=== PATIENT | female | born 1930 | race Caucasian/White ===

== ENCOUNTER 2016-06-10 03:47 | Inpatient (IN) | payer OTHER, MEDICARE ==
[~2016-06-10] VITALS: Ht 144.8 cm; Wt 81.2 kg
[~2016-06-10 03:47] MED LIST: ALDACTONE50 M1 PO; AMLODIPINE BESY10 M1 PO; ASPIRIN EC81 M1 PO; EVISTA60 MG PO; FLONASE ALLERG9.9 ML NAS; LEVOCETIRIZINE D5 M1 PO; LEVOTHYROXINE50 MCG PO; METAMUCIL0.52 GM PO; PATADAY2.5 ML OPH; PRAVACHOL20 M2 PO; REFRESH TEARS15 ML OPH; [UNRECOGNIZED DRUG - OTHER] PO
[2016-06-10] MEDS ORDERED: PATADAY2.5 ML OPH (12:59)
--- NOTE | 2016-06-10 13:21 | Admission Core Measures ---
See Addendum Admission Meds I reviewed the following Meds: Current Medications Sig/Nubia Start time Last Medication Dose Stop Time Status Admin Acetaminophen 975 MG ONCE 06/10 0000 NR (Tylenol) 06/10 2359 Amlodipine Besylate 10 MG DAILY 06/11 1000 UNVr (Norvasc) Artificial Tears 2 GTT DAILY 06/11 1000 UNVr (Tears Natural) Fluticasone 2 SPRAY DAILY 06/11 1000 UNVr Propionate (Flonase) Naphazoline HCl/ 1 GTT DAILY 06/11 1000 UNVr Pheniramine Maleate (Visine-A) Non-Formulary 0 SEE ADMIN CRITERIA 06/10 1315 UNVr Medication (NON FORMULARY) Oxycodone HCl 10 MG ONCE 06/10 0000 NR (Roxicodone) 06/10 2359 Pravastatin Sodium 20 MG DAILY 06/11 1000 UNVr (Pravachol) Spironolactone 25 MG DAILY 06/11 1000 UNVr (Aldactone) Acute Coronary Syndrome Inclusion Criteria ACS Diagnosis No Inpatient Core Measures LDL Reminder: If No, please order W/I first 24hr of stay Congestive Heart Failure Inclusion Criteria CHF Diagnosis No Cerebrovascular accident Inclusion Criteria CVA/TIA Diagnosis No Inpatient Core Measures Bedside Swallow Eval Reminder: If BSE failed, place ST order Antithrombotic Reminder: Order Antithrombotic Medication by end of day 2 Antithrombotic Reminder: Document Reason Antithrombotic Not ordered by end of day 2 AFIB/Flutter Reminder: If Present, add to problem list AFIB/Flutter Reminder: Order Anticoag Medication for pts with AFIB/Flutter Atherosclerosis Reminder: If Present, add to problem list LDL Reminder: If No, please order W/I first 24hr of stay PT Order Reminder: If No, please order Venous thromboembolism Inpatient Core Measures VTE Risk Factors: Age > 40, Surgery VTE Prophylaxis Ordered Inpt [facility] prophylaxis d/t No contraindications No VTE Pharm Prophylaxis d/t No contraindications Inclusion Criteria - Per Current guidelines, there needs to be overlap - treatment for the first 5 days of Warfarin therapy. - Parenteral Anticoagulation (IV or SC) needs to be - given along with Warfarin therapy. VTE Diagnosis No VTE Type NONE VTE Confirmed by (Test) NONE Problem List As ranked by this Provider includes Assessment & Plan 1. Unilateral primary osteoarthritis, left knee HOME MEDS Home Med List Amlodipine Besylate 10 MG TABLET 1 TAB PO DAILY BP (Reported) Carboxymethylcellulose Sodium (Refresh Tears) (Unknown Strength) DROPS ( Unknown Dose) OPH AD PRN EYE(S) (Reported) Fluticasone Propionate (Flonase Allergy Relief) (Unknown Strength) SPRAY.SUSP (Unknown Dose) KEYSHAWN AD ALLERGIES (Reported) Levocetirizine Dihydrochloride 5 MG TABLET 1 TAB PO DAILY ALLERGIES (Reported ) Levothyroxine Sodium 50 MCG TABLET 1 TAB PO DAILY THYROID (Reported) [OCUGARD] 1 TAB PO DAILY SUPPLEMENT (Reported) Olopatadine HCl (Pataday) 0.2 % DROPS 1 GTT OPH DAILY ALLERGIES (Reported) Pravastatin Sodium (Pravachol) 20 MG TABLET 1 TAB PO DAILY CHOLESTEROL ( Reported) Psyllium Husk (Metamucil) (Unknown Strength) CAPSULE 2 TSP PO DAILY CONSTIPATION (Reported) Raloxifene Hydrochloride (Evista) 60 MG TABLET 1 TAB PO DAILY OSTEOPOROSIS ( Reported) Spironolactone (Aldactone) 50 MG TABLET 0.5 TAB PO DAILY EDEMA (Reported) Discontinued Medications Aspirin (Ecotrin*) 81 MG TABLET.DR 1 TAB PO DAILY HEART/BLOOD (Reported) Discontinued reason: Changed Dose
[2016-06-10] MEDS ORDERED: MS CONTIN15 M2 PO (13:27)
[2016-06-10] MEDS ORDERED: DILAUDID2 M1 PO (13:27)
[2016-06-10] MEDS ORDERED: MIRALAX17 G1 PO (13:27)
[2016-06-10] MEDS ORDERED: COLACE100 M1 PO (13:27)
[2016-06-10] MEDS ORDERED: ASPIRIN EC325 M2 PO (13:27)
--- NOTE | 2016-06-10 13:31 | Patient Discharge Instructions ---
Discharge Instructions General Discharge Information You were seen/treated for: Right knee pain You had these procedures: Right total knee replacement Watch for these problems: Increasing pain, redness, warmth, swelling. Drainage of any type from incision. Inability to bear weight on left leg. Fever greater than 101.5. Do not soak the wound: Yes No bath, but you may shower: Yes Special Instructions: Incision: Dry dressing. May shower. No baths. No ointments of any kind. Ice as needed. Bowel regimen: Colace and or Miralax Weight-bearing as tolerated Follow-up with Dr. Ponce in 6 weeks. Call office for fevers greater than 101.5, excessive drainage or inability to bear weight on operative extremity. Visiting nurse will change dressing. Blood thinner: You are taking a blood thinner called coumadin, another name for this medication is warfarin. The dose of this medication depends on blood work that you will be having called INR. Your INR will be checked twice weekly and the dose of your coumadin will be made based on your INR. Please await specific instructions from Dr. Ponce's office regarding how much coumadin you are to be taking each day. Diet Continue normal diet: Yes Recommended Diet: Regular Additional DIET Information: Advance diet as tolerated Activity Full Activity/No Limits: No Activity Self Limited: Yes Pounds, do NOT lift more than: 10 Additional ACTIVITY Info: Weight-bear as tolerated on right leg Acute Coronary Syndrome Inclusion Criteria At DC or during hospital stay patient has or had the following: ACS DIAGNOSIS No Discharge Core Measures Meds if any: Prescribed or Continued at Discharge Meds if any: NOT Prescribed or Continued at Discharge Congestive Heart Failure Inclusion Criteria At DC or during hospital stay patient has or had the following: CHF DIAGNOSIS No Discharge Core Measures Meds if any: Prescribed or Continued at Discharge Meds if any: NOT Prescribed or Continued at Discharge Cerebrovascular accident Inclusion Criteria At DC or during hospital stay patient has or had the following: CVA/TIA Diagnosis No Discharge Core Measures Meds if any: Prescribed or Continued at Discharge Meds if any: NOT Prescribed or Continued at Discharge Venous thromboembolism Inclusion Criteria VTE Diagnosis No VTE Type NONE VTE Confirmed by (Test) NONE Discharge Core Measures - Per Current guidelines, there needs to be overlap - treatment for the first 5 days of Warfarin therapy. - If discharged on Warfarin prior to 5 days of - overlap therapy, the patient will need to be - assessed for post discharge needs including - *Post discharge parental anticoagulation - *Warfarin and/or parental anticoagulation education - *Follow up date to check INR post discharge At least 5 days overlap therapy as Inpatient No Meds if any: Prescribed or Continued at Discharge Note: Overlap Therapy is Warfarin and Anticoagulant Meds if any: NOT Prescribed or Continued at Discharge Meds if any: Prescribed or Continued at Discharge Note: Overlap Therapy is Warfarin and Anticoagulant Meds if any: NOT Prescribed or Continued at Discharge
--- NOTE | 2016-06-10 13:33 | Surgical Discharge Summary ---
Visit Information Visit Dates Admission Date: 06/10/16 Discharge Date: 06/13/16 History of Present Illness Chief Complaint: Right knee pain Medical History Isolation History: Standard Surgical History Pertinent Surgical History: non-contributory Review of Systems: See H&P Hospital Course Course Attending Physician: YVONNE BALDERAS MD Primary Care Physician: PATIENT HAS NO PRIMARY CARE DR Hospital Course: Patient was admitted to the hospital on 06/10/2016 for an elective right total knee replacement. She tolerated the procedure well. She was transferred to a general surgical floor. Her diet was advanced and tolerated. She voided spontaneously. Her vital signs were stable and within normal limits. Her pain was well controlled. She was evaluated and treated by physical therapy. She was deemed appropriate for discharge. Allergies: Coded Allergies: Penicillins (Intermediate, 06/04/16) Sulfa (Sulfonamide Antibiotics) (Intermediate, 06/04/16) Tetracyclines (Intermediate, 06/04/16) ciprofloxacin (From CIPRO) (Intermediate, 06/04/16) diphenhydramine (From BENADRYL) (Intermediate, 06/04/16) guaifenesin (From MUCINEX) (Intermediate, 06/04/16) latex (Intermediate, 06/04/16) Disposition Summary Disposition Principal Diagnosis: right knee unilateral primary osteoarthritis Additional Diagnosis: None Discharge Disposition: home health services Discharge Instructions General Discharge Information Code Status: Full Code Patient's Diet: Regular, advance as tolerated Patient's Activity: Weight-bear as tolerated on right leg Follow-Up Instructions/Appts: Incision: Dry dressing. May shower. No baths. No ointments of any kind. Ice as needed. Bowel regimen: Colace and or MiraLAX Weight-bearing as tolerated Follow-up with Dr. Balderas in 6 weeks. Call office for fevers greater than 101.5, excessive drainage or inability to bear weight on operative extremity. Visiting nurse will change dressing. Medications at Discharge Discharge Medications: Stop taking the following medications: Aspirin (Ecotrin*) 81 MG TABLET. ORAL DAILY Continue taking these medications: Amlodipine Besylate (Amlodipine Besylate) 10 MG TABLET 1 Tablet ORAL DAILY Comments: DOCUMENTED PER CMR DURING PRE-SX INTERVIEW Pravastatin Sodium (Pravachol) 20 MG TABLET 1 Tablet ORAL DAILY Comments: DOCUMENTED PER CMR DURING PRE-SX INTERVIEW Levocetirizine Dihydrochloride (Levocetirizine Dihydrochloride) 5 MG TABLET 1 Tablet ORAL DAILY Comments: DOCUMENTED PER CMR DURING PRE-SX INTERVIEW Spironolactone (Aldactone) 50 MG TABLET 0.5 Tablet ORAL DAILY Comments: MAY REPEAT IN PM; DOCUMENTED PER CMR DURING PRE-SX INTERVIEW Levothyroxine Sodium (Levothyroxine Sodium) 50 MCG TABLET 1 Tablet ORAL DAILY Comments: DOCUMENTED PER CMR DURING PRE-SX INTERVIEW Fluticasone Propionate (Flonase Allergy Relief) (Unknown Strength) SPRAY.SUSP Unknown Dose In the nose As Directed Comments: DOCUMENTED PER CMR DURING PRE-SX INTERVIEW Psyllium Husk (Metamucil) (Unknown Strength) CAPSULE 2 Teaspoonful ORAL DAILY Comments: DOCUMENTED PER CMR DURING PRE-SX INTERVIEW Raloxifene Hydrochloride (Evista) 60 MG TABLET 1 Tablet ORAL DAILY Comments: DOCUMENTED PER CMR DURING PRE-SX INTERVIEW [OCUGARD] 1 Tablet ORAL DAILY Comments: DOCUMENTED PER CMR DURING PRE-SX INTERVIEW Carboxymethylcellulose Sodium (Refresh Tears) (Unknown Strength) DROPS Unknown Dose In the eye As Directed as needed for EYE(S) Comments: DOCUMENTED PER CMR DURING PRE-SX INTERVIEW Olopatadine HCl (Pataday) 0.2 % DROPS 1 Drop In the eye DAILY Start taking the following new medications: Hydromorphone HCl (Dilaudid) 2 MG TABLET 1-2 Tablet ORAL Q4-6HR as needed for PAIN Qty = 36 No Refills Docusate Sodium (Colace) 100 MG CAPSULE 1 Capsule ORAL TWICE DAILY Qty = 14 No Refills Polyethylene Glycol 3350 (Miralax) 17 GRAM POWD.PACK 1 Packet ORAL DAILY Qty = 7 No Refills Instructions: dissolve in water, DISCONTINUE USE IF YOU DEVELOP LOOSE STOOL OR DIARRHEA Warfarin Sodium (Coumadin) 2.5 MG TABLET 1-3 Tablet ORAL DAILY Qty = 30 No Refills Instructions: THE DOSE OF THIS MEDICATION MAY CHANGE DAILY. PLEASE AWAIT SPECIFIC DAILY INSTRUCTIONS PRIOR TO TAKING. dissolve in water, DISCONTINUE USE IF YOU DEVELOP LOOSE STOOL OR DIARRHEA Warfarin Sodium (Coumadin) 2.5 MG TABLET 1-3 Tablet ORAL DAILY Qty = 30 No Refills Instructions: THE DOSE OF THIS MEDICATION MAY CHANGE DAILY. PLEASE AWAIT SPECIFIC DAILY INSTRUCTIONS PRIOR TO TAKING.
[2016-06-10] MEDS ORDERED: COUMADIN2.5 M1 PO (13:44)
--- NOTE | 2016-06-10 14:28 | Operative Report ---
Operative/Inv Procedure Report Surgery Date: 06/10/16 Name of Procedure: Right total knee replacement Pre-Operative Diagnosis: Primary right knee DJD Post-Operative Diagnosis: Same Estimated Blood Loss: 50ml to 100ml Surgeon/Eyelet Maker: ANDREY SIMON,YVONNE Guevara Anesthesia: block Operative/Procedure Note Note: Description of Procedure: The patient was taken to the operating room and positively identified. After induction of spinal anesthesia and administration of appropriate pre-operative antibiotics, the patient was positioned supine on the operating room table and all bony prominences were well padded. A well-padded pneumatic tourniquet was placed on the right upper thigh. After performing a surgical timeout, the right lower extremity was prepped and draped in the usual sterile fashion. After exsanguination with Esmarch the tourniquet was inflated to 250mm of mercury. A standard medial parapatellar approach was made to the knee. This was carried down through skin and subcutaneous tissue to the level of the fascia. Meticulous hemostasis was maintained with Bovie electrocautery. The extensor mechanism and patellar retinaculum were opened sharply and the patella was everted. The infrapatellar fat was resected in order to improve exposure. Osteophytes were trimmed from the patella and femoral condyles and the patella was re-everted and tucked laterally. A medial release was performed and the cruciate ligaments were resected. The tibia was then subluxed anteriorly. Utilizing the appropriate extra-medullary guide, the proximal tibia was trimmed perpendicular to the long axis of the tibial shaft. Attention was then turned to the femur. After opening the medullary canal, the distal femoral cut was made in 6 degrees of valgus utilizing the appropriate intra-medullary guide. The extension gap was checked and found to be appropriate. The femur was then sized and the remainder of the femoral cuts were made with a size 2 4-in-1 femoral cutting guide. The flexion gap was checked and found to be symmetric and appropriate. The knee was then trialed with a size 2 CR femoral component, a size 2 tibial component and a size 16 mm CS polyethylene insert. The patella was not resurfaced due to its excellent preoperative condition. This yielded excellent range of motion, stability and patellar tracking. All trial components were removed and the knee was copiously irrigated with sterile saline. All components were cemented into place with Beach[employer] Simplex cement. All the components were of the Aj Triathlon knee system of the above stated sizes. The knee was again irrigated after cementation. The extensor mechanism and patellar retinaculum were repaired using interrupted #1 vicryl suture. The skin was re-approximated with 2-0 vicryl and closed with eliazar. A sterile dressing was applied, the tourniquet was deflated, the patient was awakened and taken to the recovery room in satisfactory condition.
[2016-06-10 14:30] VITALS: BP 150/70
--- NOTE | 2016-06-10 15:37 | PN- Orthopedic ---
Subjective Subjective: Post op check: Patient tolerated procedure. C/O mild nausea without vomitting presently. Denies chest pain, shortness of breath and difficulty breathing. Feels sensation to bilateral lower extremities. Has on Q in place, is presently without complaints of pain. Objective Vital Signs and I&Os HR: 66 BP: 121/72 RR: 14 O2: 96 on room air Temp: 98.2 oral Physical Exam: General: Alert and oriented x3, no acute distress Cardiac: RRR, s1s2 Pulmonary: Bilateral lung sounds clear to auscultation Abdomen: Non-tender, non-distended, +bs Extremities: Distal sensations intact, motor 5/5 in plantar and dorsi flexion. Skin warm and well prefused. DP pulses palpable bilaterally. Bilateral calves soft and non-tender Surgical site: Right knee. Dressing dry and intact, on q in place Assessment/Plan Assessment/Plan This is a 85 year old female, PMH significant for htn, hld, hypothyroid, allergies. Post op day 0, s/p right total knee replacemenet. -WBAT right leg -ABX: ancef 2 g x2 additional doses -DVT ppx: Coumadin with 1 week asa bridge, 5 mg tonight -GI ppx: Prilosec -Bowel regimen: Colace and miralax -Pain regimen: PO dilaudid with iv morphine for breakthrough -F/U am labs -Dispo: home in 2-3 nights Core Measures/Miscellaneous Venous Thromboembolism VTE Risk Factors: Age > 40, Surgery VTE Contraindications: No Contraindications VTE Prophylaxis Ordered Inpt: Mech & Pharm VTE Diagnosis: No VTE Type: NONE VTE Confirmed by (Test): NONE Beta Eren Is Beta Eren a Home Med? No Antibiotics Is Patient on Antibiotics? Yes If Yes: prophylaxis
[2016-06-10 19:35] VITALS: BP 142/78
--- NOTE | 2016-06-10 20:54 | NUR ---
PT ARRIVED TO FLOOR AT [facility] 1625 FROM PACU. PT A&O X 3, FAMILY TO BEDSIDE. HENRY WRAP TO RLE INTACT. PULSES+. NO C/O PAIN. ON Q PUMP TO R ADDUCTOR CANAL INTACT AT 8ML/HR. CARRILLO TO GRAVITY DRAINING CLEAR YELLOW URINE. BED LOW, LOCKED, CALL ANDERSON WITHIN REACH. MEDS GIVEN PER EMAR. CONT TO MONITOR/ MANAGE PAIN, MAINTAIN SAFETY PRECATIONS.
[2016-06-10 21:10] VITALS: BP 136/74
[2016-06-10 22:54] VITALS: BP 108/70
[2016-06-11 03:13] VITALS: BP 108/60
[2016-06-11 07:35] VITALS: BP 120/70
[2016-06-11 08:16] LABS: PT 11.4 SEC (9.4-12.5)
--- NOTE | 2016-06-11 08:31 | PN- Orthopedic ---
See Addendum Subjective Subjective: No acute events overnight. Pt had some nausea with her pain meds, which has since resolved with zofran. She is tolerating some solid food. She is awaiting PT. Lorenz catheter remains in place. Otherwise denies CHU, dizziness, CP, SOB. Objective Vital Signs and I&Os Vital Signs Date Time Temp Pulse Resp B/P Pulse O2 O2 Flow FiO2 Ox Delivery Rate 06/11 0735 98.7 58 20 120/70 97 Room Air 06/11 0313 98.1 61 20 108/60 97 Room Air 06/10 2254 97.5 61 20 108/70 97 Room Air 06/10 2110 97.5 61 20 136/74 96 Room Air 06/10 1942 96.3 06/10 1935 94.7 58 20 142/78 96 Room Air 06/10 1430 97.5 65 20 150/70 92 Room Air Intake & Output 06/11 1600 06/11 0800 06/11 0000 06/10 1600 06/10 0800 06/10 0000 Intake Total 750 495 Output Total 200 900 Balance 550 -405 Intake, IV 650 375 Intake, Oral 100 120 Output, Urine 200 900 Patient 179 lb Weight Physical Exam: General: Pt is awake and alert. NAD. She is sitting in bed, ready to eat breakfast. Cardiac: regular Pulmonary: Good inspiratory effort. Lungs are cta bilaterally. Ext: RLE dressing is c/d/i. On Q pain catheter is in place. LE sensation is intact. Strength of DF/PF 4/5. Assessment/Plan Assessment/Plan Pt is an 85 yo F with a hx of htn, hld, hx L TKR last year, and hypothyroidism, who is now POD #1 s/p R TKA. She is progressing well from a surgical standpoint. Plan: -Advance diet as tolerated. -Continue IVF, but change to D5NS due to labs. ?erroneous labs. Will repeat and send CBC because it was not received by the lab this morning... -Leave lorenz in place due to low urine output. Will re-evaluate for removal later today. -PT today for mobilization. WBAT. Will f/u dc recommendations. -Coumadin for DVT ppx with ASA bridge. -Colace and Miralax for bowel regimen. -Pain control with po dilaudid or tylenol. -24 hour antibiotic ppx complete. -Plan for dressing change tomorrow. Core Measures/Miscellaneous Lorenz Catheter Date In: 06/10/16 Still Needed? Yes Venous Thromboembolism VTE Risk Factors: Age > 40, Surgery VTE Contraindications: No Contraindications VTE Prophylaxis Ordered Inpt: Mech & Pharm VTE Diagnosis: No VTE Type: NONE VTE Confirmed by (Test): NONE Beta Eren Is Beta Eren a Home Med? No Antibiotics Is Patient on Antibiotics? No
[2016-06-11 10:30] LABS: ABSOLUTE BASOPHIL COUNT 0 /CUMM (0.0-0.2); ABSOLUTE EOSINOPHIL COUNT 0 /CUMM (0.0-0.7); ABSOLUTE GRANULOCYTE CT 16.4 /CUMM (1.4-6.5); ABSOLUTE MONOCYTE COUNT 1.5 /CUMM (0.10-0.60); BASOPHIL % 0 % (0.0-2.0); EOSINOPHIL % 0 % (0-5); MEAN CORPUSCULAR HGB 28.4 PG (27.0-31.0); MEAN CORPUSCULAR HGB CONC 32.8 G/DL (33.0-37.0); MEAN CORPUSCULAR VOLUME 86.6 FL (81.0-99.0); MEAN PLATELET VOLUME 10.5 FL (7.4-10.4); PLATELET COUNT 201 /CUMM (130-400); RBC DISTRIBUTION WIDTH 16.6 % (11.5-14.5); RED BLOOD CELL CT 4.62 /CUMM (4.20-5.40); WHITE BLOOD CELL COUNT 18.9 /CUMM (4.8-10.8)
[2016-06-11 14:49] VITALS: BP 160/60
[2016-06-11 22:43] VITALS: BP 140/60
[2016-06-12 07:10] VITALS: BP 160/60
[2016-06-12 07:57] LABS: ABSOLUTE BASOPHIL COUNT 0 /CUMM (0.0-0.2); ABSOLUTE EOSINOPHIL COUNT 0.2 /CUMM (0.0-0.7); ABSOLUTE GRANULOCYTE CT 8.7 /CUMM (1.4-6.5); ABSOLUTE LYMPH COUNT 2.5 /CUMM (1.2-3.4); ABSOLUTE MONOCYTE COUNT 1.8 /CUMM (0.10-0.60); BASOPHIL % 0.1 % (0.0-2.0); EOSINOPHIL % 1.5 % (0-5); HEMATOCRIT 39.3 % (37-47); MEAN CORPUSCULAR HGB CONC 33.6 G/DL (33.0-37.0); MEAN CORPUSCULAR VOLUME 86.2 FL (81.0-99.0); MEAN PLATELET VOLUME 10.8 FL (7.4-10.4); PLATELET COUNT 152 /CUMM (130-400); RBC DISTRIBUTION WIDTH 17.1 % (11.5-14.5); RED BLOOD CELL CT 4.56 /CUMM (4.20-5.40); WHITE BLOOD CELL COUNT 13.2 /CUMM (4.8-10.8)
[2016-06-12 08:24] LABS: PT 15.8 SEC (9.4-12.5)
--- NOTE | 2016-06-12 09:47 | PN- Orthopedic ---
Subjective Subjective: POD#2 S/P RIGHT TKA INCREASED PAIN RIGHT KNEE IMPROVED JWITH PAIN MEDS DENEIS CP, SOB, NO N+V WITH DIET Objective Vital Signs and I&Os Vital Signs Date Time Temp Pulse Resp B/P Pulse O2 O2 Flow FiO2 Ox Delivery Rate / 0926 160/60 / 0710 97.6 56 20 160/60 98 Room Air 06/11 2243 98.5 60 20 140/60 97 Room Air 06/11 1449 97.8 70 20 160/60 98 Room Air Intake & Output / 1600 06/12 0800 06/12 0000 06/11 1600 06/11 0800 06/11 0000 Intake Total 076 699 2327 750 495 Output Total 1200 700 100 200 900 Balance -500 -300 1300 550 -405 Intake, IV 600 300 800 650 375 Intake, Oral 100 100 600 100 120 Number 0 Bowel Movements Output, Urine 1200 700 100 200 900 Patient 179 lb Weight Physical Exam: CV: RRR LUNGS: CLEAR ABD: SOFT, +BS EXT: DRSG CHANGED, WOUND C/D/I NO CLAF TENDERNESS BILAT DISTQAL CMS INTACT Assessment/Plan Assessment/Plan ORTHO STABLE PLAN OOB WITHPT/STAIRS COUMADIN FJOR DVT JPROPHYLAXIS HOME D/C PLANNING Core Measures/Miscellaneous Charles Catheter Date In: 06/10/16 Venous Thromboembolism VTE Risk Factors: Age > 40, Surgery VTE Contraindications: No Contraindications VTE Prophylaxis Ordered Inpt: Mech & Pharm VTE Diagnosis: No VTE Type: NONE VTE Confirmed by (Test): NONE Beta Eren Is Beta Eren a Home Med? No Antibiotics Is Patient on Antibiotics? No
[2016-06-12 14:46] VITALS: BP 166/80
[2016-06-12 22:12] VITALS: BP 170/66
[2016-06-13 06:12] VITALS: BP 152/70
[2016-06-13 08:14] LABS: PT 22.7 SEC (9.4-12.5)
[2016-06-13 09:30] VITALS: BP 140/60
--- NOTE | 2016-06-13 10:17 | PN- Orthopedic ---
Subjective Subjective: POD #3 s/p R TKR. Resting comfortably in bed. No complaints offered of CP/SOB, N/V, F/C. Ambulating with PT. Voiding spontaneously. Objective Vital Signs and I&Os Vital Signs Date Time Temp Pulse Resp B/P Pulse O2 O2 Flow FiO2 Ox Delivery Rate 06/13 0930 67 140/60 06/13 0612 97.8 63 20 152/70 98 Room Air 06/12 2212 98.0 68 20 170/66 98 Room Air 06/12 1446 97.9 68 18 166/80 99 Room Air Intake & Output 06/13 1600 06/13 0800 06/13 0000 06/12 1600 06/12 0800 06/12 0000 Intake Total 268 783 9716 700 400 Output Total 550 912 926 0277 700 Balance -190 -60 605 -500 -300 Intake, IV 600 600 300 Intake, Oral 360 240 480 100 100 Number 0 Bowel Movements Output, Urine 550 558 233 5974 700 Physical Exam: Gen: AAOx3 in NAD Cor: S1+S2+ Lungs: CTA cady Abd: soft, NT, ND, +BS x4 Ext: right knee dressing changed. Incision C/D/I with eliazar. No surrounding drainage or erythema. Ecchymosis noted around incision. Minimal tenderness to palpation. Dorsi and plantar flexion intact. Sensation intact. DP/PT pulses palpable. Current Medications: Current Medications Sig/Nubia Start time Last Medication Dose Route Stop Time Status Admin Amlodipine Besylate 10 MG DAILY 06/11 1000 AC 06/13 PO 0930 Artificial Tears 2 GTT DAILY 06/11 1000 AC 06/13 OPH 0932 Aspirin 325 MG BID 06/10 2199 AC 06/13 PO 0929 Dextrose/Sodium 1,000 ML Q13H 06/11 0845 DC 06/11 Chloride IV 2244 Docusate Sodium 100 MG BID 06/10 2200 AC 06/13 PO 0929 Fluticasone 2 SPRAY DAILY 06/11 1000 AC 06/13 Propionate KEYSHAWN 0931 Hydromorphone HCl 2 MG Q4P PRN 06/10 170 AC 06/13 PO 0930 Melatonin 3 MG AT BEDTIME PRN 06/11 2300 AC 06/12 PO 2144 Morphine Sulfate 2 MG Q2P PRN 06/10 1700 AC 06/12 IV 1828 Naphazoline HCl/ 1 GTT DAILY 06/11 1000 AC 06/13 Pheniramine Maleate OPH 0933 Omeprazole 40 MG DAILY AC 06/11 0700 AC 06/13 PO 0517 Ondansetron HCl 4 MG Q6P PRN 06/10 1700 AC 06/12 IV 1828 Patient Medication 1 ED .STK-MED ONE 06/12 1343 TN Teaching ED 06/12 1344 Polyethylene Glycol 17 GM DAILY 06/11 1000 AC 06/13 PO 0931 Pravastatin Sodium 20 MG DAILY@1700 06/11 1700 AC 06/12 PO 1828 Promethazine HCl 12.5 MG Q6P PRN 06/10 1700 AC IV 06/17 1314 Raloxifene HCl 60 MG DAILY 06/11 1000 AC 06/13 PO 0930 Simethicone 80 MG Q6P PRN 06/11 0045 AC 06/11 PO 0110 Warfarin Sodium 5 MG COUMADIN 1700 ONE 06/12 1700 DC 06/12 PO 06/12 1701 1726 Results Last 48 Hours of Labs: Laboratory Tests 06/13 06/12 06/12 0730 0910 0600 Chemistry Sodium (137 - 145 mmol/L) 128 L Potassium (3.5 - 5.1 mmol/L) 4.5 Chloride (98 - 107 mmol/L) 94 L Carbon Dioxide (22 - 30 mmol/L) 22 Anion Gap (5 - 16) 12 BUN (7 - 17 mg/dL) 29 H Creatinine (0.5 - 1.0 mg/dL) 0.9 Estimated GFR (>60 ml/min) 59 L BUN/Creatinine Ratio (7 - 25 %) 32.2 H Coagulation PT (9.4 - 12.5 SEC) 22.7 H 15.8 H INR (0.90 - 1.19) 2.18 H 1.51 H Hematology CBC w Diff NO MAN DIFF REQ WBC (4.8 - 10.8 /CUMM) 13.2 H RBC (4.20 - 5.40 /CUMM) 4.56 Hgb (12.0 - 16.0 G/DL) 13.2 Hct (37 - 47 %) 39.3 MCV (81.0 - 99.0 FL) 86.2 MCH (27.0 - 31.0 PG) 29.0 RDW (11.5 - 14.5 %) 17.1 H Plt Count (130 - 400 /CUMM) 152 MPV (7.4 - 10.4 FL) 10.8 H Gran % (42.2 - 75.2 %) 66.0 Lymphocytes % (20.5 - 51.1 %) 19.1 L Monocytes % (1.7 - 9.3 %) 13.3 H Eosinophils % (0 - 5 %) 1.5 Basophils % (0.0 - 2.0 %) 0.1 Absolute Granulocytes (1.4 - 6.5 /CUMM) 8.7 H Absolute Lymphocytes (1.2 - 3.4 /CUMM) 2.5 Absolute Monocytes (0.10 - 0.60 /CUMM) 1.8 H Absolute Eosinophils (0.0 - 0.7 /CUMM) 0.2 Absolute Basophils (0.0 - 0.2 /CUMM) 0 PUBS MCHC (33.0 - 37.0 G/DL) 33.6 Assessment/Plan Assessment/Plan A: POD #3 s/p right TKR. AVSS. Plan: F/U INR. If >1.8, will stop aspirin bridge. D/C home today with services. Core Measures/Miscellaneous Charles Catheter Date In: 06/10/16 Venous Thromboembolism VTE Risk Factors: Age > 40, Surgery VTE Contraindications: No Contraindications VTE Prophylaxis Ordered Inpt: Mech & Pharm VTE Diagnosis: No VTE Type: NONE VTE Confirmed by (Test): NONE Beta Eren Is Beta Eren a Home Med? No Antibiotics Is Patient on Antibiotics? No
== END 2016-06-13 12:00 | disposition home health service (06) | DRG 470 ==
LOC: SDA 03:47 → 2NA 03:47 → SDA 07:00 → 2NA 16:31
PROVIDERS: Nurse Practitioner; Physician Assistant Surgical; ADMIT Orthopaedic Surgery
PROC: 0SRC0J9 Replacement of Right Knee Joint with Synthetic Substitute, Cemented, Open Approach (ICD-10-PCS; principal; 2016-06-10)
DX: M17.11 Unilateral primary osteoarthritis, right knee (principal); I10 Essential (primary) hypertension; E78.5 Hyperlipidemia, unspecified; E03.9 Hypothyroidism, unspecified
CPT/HCPCS: 2NASP; 36415; 82436; 88305; 97001-GP; 97110-GO; 97116-GO; 97161-GP; 97530-GO; C1713; J0131; J0690; J2405; J2550; J2795; J7042